=== PATIENT | female | born 1945 | race Two or more races ===

== ENCOUNTER 2020-03-25 05:07 | Emergency (ER) | payer OTHER ==
[2020-03-25] MEDS ORDERED: SODIUM BICARBONATE 8.4% INJ 50ML SYRINGE ONE (05:20)
== END 2020-03-25 05:47 ==
LOC: EDBD 05:07 → ER 05:07
DX: I46.9 Cardiac arrest, cause unspecified (principal); E11.22 Type 2 diabetes mellitus with diabetic chronic kidney disease; I12.0 Hypertensive chronic kidney disease with stage 5 chronic kidney disease or end stage renal disease; N18.6 End stage renal disease
CPT/HCPCS: 31500; 92950